=== PATIENT | female | born 1955 ===

== ENCOUNTER 2023-11-12 05:39 | Day surgery (SDC) | payer OTHER ==
[2023-11-12] MEDS ORDERED: fentaNYL CITRATE 50 MCG/ML AMPUL IV PUSH ONE (09:30)
[2023-11-12] MEDS ORDERED: MIDAZOLAM HCL 2 MG/2 ML VIAL IV ONE (09:30)
[2023-11-12] MEDS ORDERED: ONDANSETRON HCL 2 MG/ML VIAL IV ONE (09:30)
[2023-11-12] MEDS ORDERED: DIPHENHYDRAMINE HCL 50 MG/ML VIAL 1ML IV ONE (09:30)
== END 2023-11-12 10:40 | disposition home or self-care (01) ==
LOC: AMB-ENDOS 05:39
PROVIDERS: ATTEND Colon & Rectal Surgery
DX: D12.0 Benign neoplasm of cecum (principal); K59.00 Constipation, unspecified; K63.5 Polyp of colon; Z88.6 Allergy status to analgesic agent